=== PATIENT | male | born 1995 | race Caucasian/White ===

== ENCOUNTER 2019-02-19 14:19 | Emergency (ER) | payer SELFPAY ==
[~2019-02-19] VITALS: Ht 165.1 cm; Wt 67.8 kg
[2019-02-19] MEDS ORDERED: [UNRECOGNIZED DRUG - OTHER] PO (14:32)
[2019-02-19] MEDS ORDERED: SODIUM CHLORIDE 0.9% 1,000 ML IV ONE (15:00)
[2019-02-19 15:07] LABS: BASOPHILS % (AUTO) 0.2 % (0.0-2.0); EOSINOPHILS % (AUTO) 0.3 % (1.0-6.0); HEMATOCRIT 37.5 % (41-53); HEMOGLOBIN 12.7 g/dL (13.5-17.5); LYMPHOCYTES # (AUTO) 0.8 K/uL (1.0-4.8); LYMPHOCYTES % (AUTO) 5.5 % (22.0-44.0); MEAN CORPUSCULAR HEMOGLOBIN 28.9 pg (26.0-34.0); MEAN CORPUSCULAR HGB CONC 33.9 G/dL (31.0-37.0); MEAN CORPUSCULAR VOLUME 85 fL (80-100); MONOCYTES # (AUTO) 1.3 K/uL (0.1-1.0); MONOCYTES % (AUTO) 8.9 % (2.0-9.0); NEUTROPHILS # (AUTO) 12.3 K/uL (1.8-7.7); NEUTROPHILS % (AUTO) 85.1 % (40.0-70.0); PLATELET COUNT (AUTO) 473 K/uL (150-450); RED CELL DISTRIBUTION WIDTH 13.9 % (11.5-14.5)
[2019-02-19 15:17] LABS: ANION GAP 7 mmol/L (8-16); CALCIUM, TOTAL 9.3 mg/dL (8.8-10.5); CARBON DIOXIDE 29 mmol/L (22-29); CHLORIDE 99 mmol/L (98-107); CREATININE 1.07 mg/dL (0.60-1.30); GLOMERULAR FILTR. RATE CALC > 60 mL/min (>60); GLUCOSE,RANDOM 94 mg/dL (70-110); POTASSIUM 4.5 mmol/L (3.5-5.1); SODIUM SERUM 135 mmol/L (136-145); UREA NITROGEN, BLOOD 20 mg/dL (7-18)
[2019-02-19 15:24] LABS: ALANINE AMINOTRANSFERASE 52 U/L (12-78); ALBUMIN 3.5 g/dL (3.4-5.0); ALKALINE PHOSPHATASE 74 U/L (46-116); ASPARTATE AMINOTRANSFERASE 38 U/L (15-37); BILIRUBIN,TOTAL 0.6 mg/dL (0.1-1.0); TOTAL PROTEIN, SERUM 7.8 g/dL (6.4-8.2)
[2019-02-19 15:30] VITALS: BP 140/53
== END 2019-02-19 16:18 | disposition left against medical advice (07) ==
LOC: EMS 14:21
DX: T40.1X1A Poisoning by heroin, accidental (unintentional), initial encounter (principal); F41.9 Anxiety disorder, unspecified; F17.200 Nicotine dependence, unspecified, uncomplicated; Y92.89 Other specified places as the place of occurrence of the external cause
CPT/HCPCS: 36415; 80053; 85025; 96360; 99283; G0480; J7030

== ENCOUNTER → 2021-07-01 | Emergency (ER) | payer MEDICAID ==
[~2021-07-01] VITALS: Ht 165.1 cm; Wt 72.7 kg
[~2021-07-01] MED LIST: BUPRENORPHINE HCL/NALOXONE HCL 8-2 MG SUBLINGUAL TABLET SL ONE; DIAZEPAM 5 MG TABLET PO ONE; [UNRECOGNIZED DRUG - OTHER] PO
[2021-07-01 21:00] VITALS: BP 118/73
== END | disposition home or self-care (01) ==
LOC: EMS 19:31
DX: F13.20 Sedative, hypnotic or anxiolytic dependence, uncomplicated (principal); F11.20 Opioid dependence, uncomplicated; F17.200 Nicotine dependence, unspecified, uncomplicated; Z76.0 Encounter for issue of repeat prescription
CPT/HCPCS: 99283